=== PATIENT | female | born 1990 | race Caucasian/White ===

== ENCOUNTER 2019-09-19 04:33 | Emergency (ER) | payer OTHER ==
[2019-09-19] MEDS ORDERED: DIPH,PERTUS(ACELL)TETVAC-LF 0.5 ML VIAL IM ONE (04:40)
[2019-09-19 04:52] LABS: Basophils # (A) 0.1 k/uL (0-0.2); Basophils % (A) 0 %; Eosinophils # (A) 0.5 k/uL (0-0.7); Eosinophils % (A) 2 %; HCT 42.4 % (34.0-46.0); HGB 13.8 gm/dL (11.4-16.0); Lymphocytes # (A) 6.8 k/uL (1.0-4.8); Lymphocytes % (A) 25 %; MCH 32.3 pg (25.0-35.0); MCHC 32.6 g/dL (31.0-37.0); MCV 98.9 fL (80.0-100.0); Monocytes # (A) 0.8 k/uL (0-1.0); Monocytes % (A) 3 %; Neutrophils # (A) 18.4 k/uL (1.3-7.7); Neutrophils % (A) 68 %; Platelet Count 446 k/uL (150-450); RBC 4.29 m/uL (3.80-5.40); RDW 12.5 % (11.5-15.5)
[2019-09-19 04:55] LABS: Glucose,Whole Blood 234 mg/dL (75-99)
[2019-09-19 05:02] LABS: Albumin 4.2 g/dL (3.5-5.0); Calcium 8.7 mg/dL (8.4-10.2); INR 0.9 (<1.2); Partial Thromboplastin Time 23.2 sec (22.0-30.0); Potassium 3.3 mmol/L (3.5-5.1); Prothrombin Time 9.7 sec (9.0-12.0); Total Bilirubin 0.3 mg/dL (0.2-1.3); Total Protein 6.7 g/dL (6.3-8.2)
[2019-09-19] MEDS ORDERED: MORPHINE SULFATE 4 MG/ML SYRINGE IV STA (05:04)
[2019-09-19] MEDS ORDERED: LORazepam 2 MG/ML INJ IV STA (05:04)
[2019-09-19 05:14] LABS: Creatine Kinase 200 U/L (30-135)
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
--- NOTE | 2019-09-19 05:16 | XR ---
EXAMINATION TYPE: XR chest 1V portable DATE OF EXAM: 09/19/2019 COMPARISON: NONE HISTORY: Trauma. Respiratory failure. TECHNIQUE: Single view FINDINGS: Supine view shows endotracheal tube 5 cm from the laura. Trachea is midline. There is no p leural effusion or pneumothorax. There is moderate amount of gas in the stomach. I see no pneumothora x. There are no hilar masses. Heart size is normal. I see no rib fracture. IMPRESSION: No active cardiopulmonary disease. Normal heart.
--- NOTE | 2019-09-19 05:17 | XR ---
EXAMINATION TYPE: XR pelvis AP view DATE OF EXAM: 09/19/2019 COMPARISON: None HISTORY: Trauma. Pain. TECHNIQUE: Single view FINDINGS: Pelvic ring appears intact. Proximal femurs appear intact. Sacroiliac joints appear normal. Exam is limited by the backboard. IMPRESSION: Negative exam. No fracture seen.
--- NOTE | 2019-09-19 05:19 | XR ---
EXAMINATION TYPE: XR chest 1V portable DATE OF EXAM: 09/19/2019 COMPARISON: Today HISTORY: Trauma. Respiratory failure. TECHNIQUE: Single view FINDINGS: Endotracheal tube is 4 cm from the laura. Lungs are clear. There is no sign of pleural eff usion or pneumothorax. Trachea is midline. Heart size is normal. There is nasogastric tube looped in the stomach. Stomach size is normal. IMPRESSION: No active cardiopulmonary disease. Tubing in good position.
[2019-09-19 05:27] LABS: Creatine Kinase MB 1.9 ng/mL (0.0-2.4); Troponin I <0.012 ng/mL (0.000-0.034)
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
[2019-09-19 06:17] LABS: ABG Base Excess -11.6 mmol/L; ABG HCO3 15 mmol/L (21-25); ABG Oxygen Saturation 99.8 % (94-97); ABG PCO2 31 mmHg (35-45); ABG PO2 278 mmHg (83-108); ABG TCO2 16 mmol/L (19-24); Allen Test Performed? Yes
[2019-09-19 06:58] LABS: Appearance,Urine Clear (Clear); Bilirubin,Urine Negative (Negative); Blood,Urine Small (Negative); Color,Urine Light Yellow; Glucose,Urine (UA) Trace (Negative); Ketones,Urine 1+ (Negative); Leukocyte Esterase,Urine Negative (Negative); Mucus,Urine Rare /hpf; Nitrite,Urine Negative (Negative); Protein,Urine Negative (Negative); RBC,Urine 1 /hpf (0-5); Urobilinogen,Urine <2.0 mg/dL (<2.0); WBC,Urine 1 /hpf (0-5)
[2019-09-19] MEDS ORDERED: ETOMIDATE 2 MG/ML 10 ML VIAL IVP STA (06:58)
[2019-09-19 07:09] LABS: Amphetamine Screen,Urine Not Detected (NotDetected); Barbiturate Screen,Urine Not Detected (NotDetected); Benzodiazepines Screen,Urine Not Detected (NotDetected); Cocaine Screen,Urine Not Detected (NotDetected); Methadone Screen, Urine Not Detected (NotDetected); Opiate Screen,Urine Not Detected (NotDetected); Oxycodone Screen, Urine Not Detected (NotDetected); Phencyclidine Screen,Urine Not Detected (NotDetected); Tricyclic Antidepressant,Urine Not Detected (NotDetected); Urn Cannabinoid Scrn Detected (NotDetected)
[2019-09-19 07:22] LABS: Specific Gravity,Urine >1.050 (1.001-1.035)
[2019-09-19 07:40] VITALS: BP 121/71; PULSE 78; RESP 32; TEMP 97.8
== END 2019-09-19 06:50 | disposition other institution (70) ==
LOC: EDBD → EC 04:33 → MERGE 04:33 → EC 06:50
DX: S06.9X9A Unspecified intracranial injury with loss of consciousness of unspecified duration, initial encounter (principal); R90.89 Other abnormal findings on diagnostic imaging of central nervous system; Z23 Encounter for immunization; V89.2XXA Person injured in unspecified motor-vehicle accident, traffic, initial encounter; Y92.488 Other paved roadways as the place of occurrence of the external cause
CPT/HCPCS: 36415; 36600; 86900; 86901; 80053; 82150; 82550; 82553; 82805; 83605; 83690; 84484; 85025; 85610; 85730; 86850; 81001; 81025; 80306; 80320; 72170; 71045; 72125; 70450; 71260; 74177; 90715; 99285; 96374; 96375 ×2; 90471; 31500; J2060; J2270; Q9967; 94002